=== PATIENT | female | born 1975 | race Caucasian/White ===

== ENCOUNTER 2024-05-27 14:29 | Outpatient (CLI) | payer BC, SELFPAY ==
[2024-05-27 14:40] VITALS: BP 139/88; PULSE 68; RESP 18; TEMP 36.9; O2SAT 99
[2024-05-27 15:40] VITALS: BP 129/79; PULSE 69; RESP 18; O2SAT 100
== END 2024-05-27 15:50 | disposition home or self-care (01) ==
PROVIDERS: PCP Family Medicine; Visit Provider Family Medicine
DX: M76.60 Achilles tendinitis, unspecified leg (principal); M25.571 Pain in right ankle and joints of right foot
CPT/HCPCS: 27605; 76942